=== PATIENT | female | born 1950 | race American Indian/Alaskan Native ===

== ENCOUNTER 2018-04-24 06:32 | Day surgery (SDC) | payer MEDICARE ==
[2018-04-24] MEDS ORDERED: NACL 0.9% 1000 ML 1,000 ML IV SCH (07:00)
[2018-04-24] MEDS ORDERED: WATER FOR IRRIG STERILE IR ONE ×2 (07:32→07:33)
--- NOTE | 2018-04-24 07:45 | Anesthesia Day of Surgery ---
Anesthesia Day of Surgery - Day of Surgery Patient Examined: Yes Patient H&P Reviewed: Yes Patient is NPO: Yes
--- NOTE | 2018-04-24 07:45 | Anesthesia Consultation ---
Anesthesia Consult and Med Hx Date of service: 04/24/18 - Airway Anesthetic Teeth Evaluation: Good ROM Head & Neck: Adequate Mental/Hyoid Distance: Adequate Mallampati Class: Class II Intubation Access Assessment: Probably Good - Pre-Operative Health Status ASA Pre-Surgery Classification: ASA3 Proposed Anesthetic Plan: MAC - Cardiovascular System Hx Hypertension: Yes - Endocrine Hx Renal Disease: Yes Hx End Stage Renal Disease: Yes (peritoneal dilalysis)
[2018-04-24] MEDS ORDERED: DIPRIVAN 10 MG/ML IV ONE ×2 (07:49)
[2018-04-24] MEDS ORDERED: XYLOCAINE 2% INFILTRATI ONE (07:49)
--- NOTE | 2018-04-24 08:14 | Operative Report ---
Operative Report Operative Report: SURGEON: Octavio Manzo MD EGD with biopsy REPORT PREOPERATIVE DIAGNOSIS and POSTOPERATIVE DIAGNOSIS: Abdominal pain, weight loss ESTIMATED BLOOD LOSS: minimal DESCRIPTION OF PROCEDURE: A high-resolution EGD scope was passed through the oropharynx, esophagus, stomach, and second portion of duodenum. The scope was carefully withdrawn. Retroflexion was performed in the stomach. At the end of the procedure, the scope was cleaned using normal technique. Vital signs monitored continuously throughout. SEDATION: Provided by Anesthesiology Services. COMPLICATIONS: None. FINDINGS: * No gross lesions in the duodenum. Biopsies were taken to rule out celiac disease. A total of 6 biopsies were taken, the first from the duodenal bulb, with each subsequent biopsies progressively distal with the last biopsy as distal as could be reached with the endoscope. * Stomach with moderate gastritis with small amount of adherent heme, and 2 small ulcers one in the proximal body and one in the antrum. Biopsies were taken to rule out H. Pylori infection. A total of 6 biopsies were taken, 2 from the antrum, 1 from the incisura, 2 from the body. 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 * Possible extrinsic compression of the esophagus in the lower third of the esophagus * Remainder of the exam was normal RECOMMENDATIONS: * Start PPI * CT Chest * F/u Path
[2018-04-24 09:00] VITALS: BP 151/88
--- NOTE | 2018-04-24 09:56 | Post Anesthesia Evaluation ---
- Post Anesthesia Evaluation Patient Participated: Yes Airway Patent: Yes Stable Respiratory Function: Yes Nausea/Vomiting: No Temp > 96.8F: Yes Pain Manageable: Yes Adequeate Hydration: Yes Anesthesia Complications: No Block Receding Appropriately: Not Applicable Patient on Ventilator: No
== END 2018-04-24 06:33 | disposition home or self-care (01) ==
LOC: GIO 06:32
PROVIDERS: ATTEND Student in an Organized Health Care Education/Training Program
DX: K29.40 Chronic atrophic gastritis without bleeding (principal); K21.0 Gastro-esophageal reflux disease with esophagitis; K44.9 Diaphragmatic hernia without obstruction or gangrene; H40.9 Unspecified glaucoma; I12.0 Hypertensive chronic kidney disease with stage 5 chronic kidney disease or end stage renal disease; N18.6 End stage renal disease; E78.00 Pure hypercholesterolemia, unspecified; Z99.2 Dependence on renal dialysis; Z98.890 Other specified postprocedural states; Z79.899 Other long term (current) drug therapy; Z90.710 Acquired absence of both cervix and uterus
CPT/HCPCS: 43239; 88305; 88342; J2704; J7030

== ENCOUNTER 2018-05-04 09:56 | Outpatient (CLI) | payer MEDICARE ==
--- NOTE | 2018-05-04 11:08 | Cat Scan Report ---
CT CHEST WITHOUT CONTRAST: HISTORY: Nausea. COMPARISON: none. TECHNIQUE: Helical CT in 1.25mm intervals without IV contrast. Sagittal and coronal reformatted images. FINDINGS: Thyroid gland: Normal. Tracheobronchial tree: Normal. Esophagus: Normal. Heart: Normal. Pericardium: Normal. Mediastinum: The aorta is mildly ectatic with scattered calcifications. No mediastinal mass or adenopathy. Lung Leal: Normal. Pleural Spaces: Normal. Musculoskeletal: Intact. Mild thoracic spondylosis. Limited images of the upper abdomen demonstrate demonstrate multiple small liver cysts. One cyst at the superior pole of the left kidney demonstrates hemorrhagic change. The kidneys appear mildly atrophic. IMPRESSION: No acute cardiopulmonary process. Ectatic aorta. Mild renal atrophy and bilateral renal cysts are partially imaged.
== END 2018-05-04 09:57 | disposition home or self-care (01) ==
LOC: CT 09:56
PROVIDERS: ATTEND Student in an Organized Health Care Education/Training Program
DX: I77.810 Thoracic aortic ectasia (principal); M47.814 Spondylosis without myelopathy or radiculopathy, thoracic region; N28.1 Cyst of kidney, acquired; I12.0 Hypertensive chronic kidney disease with stage 5 chronic kidney disease or end stage renal disease; E78.00 Pure hypercholesterolemia, unspecified; N18.6 End stage renal disease; Z90.710 Acquired absence of both cervix and uterus
CPT/HCPCS: 71250

== ENCOUNTER 2018-05-24 07:00 | Day surgery (SDC) | payer MEDICARE ==
[~2018-05-24 07:00] MED LIST: TETRACAINE 0.5% OS NR
[2018-05-24] MEDS: VIGAMOX OS SCH ×3 (08:15→08:25)
[2018-05-24] MEDS: MYDRIACYL OS SCH ×3 (08:15→08:25)
[2018-05-24] MEDS: AK-Dilate OS SCH ×3 (08:15→08:25)
--- NOTE | 2018-05-24 08:37 | Anesthesia Consultation ---
Anesthesia Consult and Med Hx Date of service: 05/24/18 - Airway Anesthetic Teeth Evaluation: Good ROM Head & Neck: Adequate Mental/Hyoid Distance: Adequate Mallampati Class: Class III Intubation Access Assessment: Possibly Difficult - Pulmonary Exam CTA: Yes - Cardiac Exam Cardiac Exam: RRR - Pre-Operative Health Status ASA Pre-Surgery Classification: ASA4 Proposed Anesthetic Plan: MAC - Pulmonary Hx Smoking: No Hx Asthma: No Hx Respiratory Symptoms: No - Cardiovascular System Hx Hypertension: Yes (no antihypertensives in recent days per telecommunications line installer orders) Hx Heart Attack/AMI: No Hx Percutaneous Transluminal Coronary Angioplasty (PTCA): No Hx Cardia Arrhythmia: No - Central Nervous System CVA: No - Gastrointestinal Hx Ulcer: Yes (took antirefluc medications this morning) - Endocrine Hx End Stage Renal Disease: Yes (peritoneal dilalysis qHS) Hx Liver Disease: No Hx Insulin Dependent Diabetes: No Hx Non-Insulin Dependent Diabetes: No Hx Thyroid Disease: No - Hematic Hx Anemia: Yes - Other Systems Hx Obesity: No - Additional Comments Anesthesia Medical History Comments: No hx anesthetic complications.
--- NOTE | 2018-05-24 08:37 | Anesthesia Day of Surgery ---
Anesthesia Day of Surgery - Day of Surgery Patient Examined: Yes Patient H&P Reviewed: Yes Patient is NPO: Yes
[2018-05-24] MEDS ORDERED: VERSED ONE (08:51)
[2018-05-24] MEDS ORDERED: SUBLIMAZE ONE (08:51)
--- NOTE | 2018-05-24 09:40 | Operative Report ---
Operative Report Operative Report: PATIENT'S NAME: DATE OF : DATE OF SURGERY: 05/24/2018 PREOPERATIVE DIAGNOSIS: Cataract left eye POSTOPERATIVE DIAGNOSIS: Same OPERATIVE PROCEDURE: Phacoemulsification with intraocular lens implantation, left eye SURGEON: Katy Mcmahan M.D. CLINICAL RESOURCE COORDINATOR SURGEON: Alberto Lens: [id number] 12.5 D ANESTHESIA: Monitored anesthesia care in combination with topical and intracameral anesthesia because of the established specific risk of reflux, arrhythmias, or anxiety attacks associated with ocular manipulation, as well as the difficulty of the drapery examiner to manage such potentially catastrophic events while simultaneously attempting to complete the surgical procedure and was deemed necessary for the patient's safety to have an Gas Distribution And Emergency Clerk present during the procedure whenever possible. An Gas Distribution And Emergency Clerk was utilized to regulate the intravenous sedation of the patient so the patient was cooperative yet not asleep in order for the patient to successfully maintain fixation of the eye on the operating light of the microscope. COMPLICATIONS: [No surgical complications] No blood loss. ALLERGIES: [No known drug allergies] PROGNOSIS: Excellent INDICATIONS FOR SURGERY: The patient is undergoing surgery in the hopes of eliminating or improving these visual difficulties. PROCEDURE: After arriving at the surgery center, the patient was given topical anesthetic and dilating drops, as noted in the record. The patient was then taken into the operating room and given more anesthetic drops. The eyelids, lashes, and lid margins were scrubbed with Betadine solution, and the patient was draped. The Nurse Gas Distribution And Emergency Clerk administered IV sedation and monitored the patient during the procedure. The eye was then fixated with a 0.12, and a stab incision was made in the peripheral clear cornea into the anterior chamber. This was made on my left side. Viscoelastic was next used to fill the anterior chamber. The eye was once again fixated with the 0.12 forceps and a keratome was used make an incision in clear cornea peripherally on my right hand side temporally. The capsule forceps were used to open the central anterior capsule and then make a continuous round capsulotomy. Hydrodissection was carried out utilizing a cannula and balanced salt solution to delineate the cortical material from the capsule and the nucleus from the cortical material. The phaco tip was introduced into the eye and used to remove the anterior cortical material in the area of the capsulotomy. Then the phaco tip was buried into the nucleus, and a chopping instrument was introduced into the eye and used to provide countertraction in the nucleus between this instrument and the phaco tip fracturing the nucleus. This procedure was repeated multiple times, providing multiple small segments of the lens, and then the phaco tip was used to remove each of these segments. An I/A tip was then used to remove the remaining cortex. The anterior chamber was refilled with viscoelastic. An one-piece, acrylic intraocular lens was then placed into an inserting cartridge. The tip of the inserting cartridge was introduced into the keratome incision and into the anterior chamber. The implant was gently advanced through the cartridge and into the eye, where it unfolded, and both haptics were placed in the capsular bag, where it centered nicely and appeared to be well fixated. After placement of the intraocular lens, the I~and~A handpiece was placed back into the eye and used to remove the viscoelastic, including viscoelastic that was behind the optic of the intraocular lens. The anterior chamber was then filled with balanced salt solution, and hydration of the wound was used to cause swelling of the wound and more appropriate watertight closure. When the wound was found to be firm, the patient was asked to comment on how bright the light was. If there was no light perception at all or if the light was substantially dimmer than during the rest of the surgery, the amount of fluid in the eye was decompressed to lower the intraocular pressure until the patient could see the bright light again. This was done to avoid any damage or decreased blood flow to the optic nerve. MEDICATIONS APPLIED AT END OF SURGERY: One drop of Pred Forte and Vigamox The patient was given a shield to wear at night and was instructed not to rub or push on the eye. DISCHARGE SUMMARY: The patient was released in stable condition. The patient and those with the patient were given a written sheet of postoperative instructions and counseling on any abnormal laboratory studies. The patient is to see us tomorrow for follow-up in the office and is to call immediately for any difficulties. Katy Mcmahan M.D. Date
--- NOTE | 2018-05-24 09:41 | Short Stay Summary ---
Short Stay Documentation Date of service: 05/24/18 - History H&P: obtained from office - Allergies and Medications Current Medications: Allergies No Known Allergies Allergy (Verified 05/23/18 12:49) Home Medications Medication Instructions Recorded Confirmed Last Taken Type AtorvaSTATin [Lipitor] 10 mg PO QHS 05/23/18 05/24/18 05/23/18 21:00 History B Complex 11/Folic/C/Biot/Zinc 1 each PO DAILY 05/23/18 05/24/18 05/23/18 21:00 History [Dialyvite with Zinc Tablet] Calcitriol [Rocaltrol] 0.5 mcg PO QDAY 05/23/18 05/24/18 05/23/18 09:00 History Cholecalciferol Vit D3 [Vitamin D3 1,000 unit PO QDAY 05/23/18 05/24/18 05/23/18 09:00 History 1,000 UNIT TAB] Cinacalcet [Sensipar] 30 mg PO QDAY 05/23/18 05/24/18 05/16/18 09:00 History Lanthanum Carbonate [Fosrenol] 1,000 mg PO TIDAC 05/23/18 05/24/18 05/23/18 21:00 History Levobunolol 0.5%(Nf) [Betagan (Nf)] 1 drop OP BID 05/23/18 05/24/18 05/23/18 21:00 History Pantoprazole Sodium 20 mg PO DAILY 05/23/18 05/24/18 05/23/18 09:00 History Active Medications Acetazolamide (Diamox) 500 mg PO ONCE ONE Stop: 05/24/18 09:41 Moxifloxacin HCl (Vigamox) 1 drops OS Q5MIN [facility] Stop: 05/26/18 23:59 Last Admin: 05/24/18 08:25 Dose: 1 drops Documented by: Phenylephrine HCl (Ak-Dilate) 1 drops OS Q5MIN [facility] Stop: 05/24/18 23:59 Last Admin: 05/24/18 08:25 Dose: 1 drops Documented by: Prednisolone Acetate (Pred Forte 1%) 1 drops OD QID [facility] Tetracaine HCl (Tetracaine 0.5%) 1 drops OS ONCE NR Stop: 05/24/18 23:59 Last Admin: 05/24/18 08:15 Dose: 1 drops Documented by: Tropicamide (Mydriacyl) 1 drops OS Q5MIN [facility] Stop: 05/24/18 23:59 Last Admin: 05/24/18 08:25 Dose: 1 drops Documented by: - Brief post op/procedure progress note Date of procedure: 05/24/18 Pre-op diagnosis: left cataract Post-op diagnosis: same Procedure: Phacoemulsification with intraocular lens insertion left eye Anesthesia: MAC, local Surgeon: PHOEBE PEREZ Estimated blood loss: none Pathology: none Condition: stable - Disposition Condition at discharge: Good Disposition: DC-01 TO HOME OR SELFCARE - Discharge Diagnoses (1) Cortical age-related cataract of left eye Status: Resolved Short Stay Discharge Plan Follow up with: BHASKAR HUNTER JR, MD [Primary Care Provider] - 7 Days
[2018-05-24 09:57] VITALS: BP 162/92
[2018-05-24] MEDS ORDERED: PRED FORTE 1% OD SCH (10:00)
[2018-05-24] MEDS ORDERED: DIAMOX PO ONE (10:00)
--- NOTE | 2018-05-24 11:54 | Post Anesthesia Evaluation ---
- Post Anesthesia Evaluation Patient Participated: Yes Airway Patent: Yes Stable Respiratory Function: Yes Nausea/Vomiting: No Temp > 96.8F: Yes Pain Manageable: Yes Adequeate Hydration: Yes Anesthesia Complications: No
== END 2018-05-24 10:20 | disposition home or self-care (01) ==
LOC: OR 07:00
DX: H25.012 Cortical age-related cataract, left eye (principal); I12.0 Hypertensive chronic kidney disease with stage 5 chronic kidney disease or end stage renal disease; N18.6 End stage renal disease; H40.9 Unspecified glaucoma; E78.00 Pure hypercholesterolemia, unspecified; M19.90 Unspecified osteoarthritis, unspecified site; Z99.2 Dependence on renal dialysis; Z79.899 Other long term (current) drug therapy; Z90.710 Acquired absence of both cervix and uterus; Z87.891 Personal history of nicotine dependence; Z98.890 Other specified postprocedural states; Z86.2 Personal history of diseases of the blood and blood-forming organs and certain disorders involving the immune mechanism
CPT/HCPCS: 66984; J2250; J3010; V2632

== ENCOUNTER 2018-09-06 09:08 | Day surgery (SDC) | payer MEDICARE ==
[~2018-09-06 09:08] MED LIST changes: +TETRACAINE 0.5% OD SCH; -TETRACAINE 0.5% OS NR
[2018-09-06] MEDS: AK-Dilate OD SCH ×3 (09:30→09:40)
[2018-09-06] MEDS: VIGAMOX OD SCH ×3 (09:30→09:40)
[2018-09-06] MEDS: MYDRIACYL OD SCH ×3 (09:30→09:40)
--- NOTE | 2018-09-06 09:40 | Anesthesia Day of Surgery ---
Anesthesia Day of Surgery - Day of Surgery Patient Examined: Yes Patient H&P Reviewed: Yes Patient is NPO: Yes
--- NOTE | 2018-09-06 09:43 | Anesthesia Consultation ---
Anesthesia Consult and Med Hx Date of service: 09/06/18 - Airway Anesthetic Teeth Evaluation: Good ROM Head & Neck: Adequate Mental/Hyoid Distance: Adequate Mallampati Class: Class II Intubation Access Assessment: Good - Pre-Operative Health Status ASA Pre-Surgery Classification: ASA3 Proposed Anesthetic Plan: MAC - Pulmonary Hx Smoking: No Hx Asthma: No Hx Respiratory Symptoms: No - Cardiovascular System Hx Hypertension: Yes (no antihypertensives in recent days per product controller orders) Hx Heart Attack/AMI: No Hx Percutaneous Transluminal Coronary Angioplasty (PTCA): No Hx Cardia Arrhythmia: No - Central Nervous System CVA: No Hx Psychiatric Problems: No - Gastrointestinal Hx Ulcer: Yes (took antirefluc medications this morning) Hx Gastroesophageal Reflux Disease: No - Endocrine Hx Renal Disease: Yes Hx End Stage Renal Disease: Yes (peritoneal dilalysis qHS) Hx Liver Disease: No Hx Insulin Dependent Diabetes: No Hx Non-Insulin Dependent Diabetes: No Hx Thyroid Disease: No - Hematic Hx Anemia: Yes - Other Systems Hx Alcohol Use: No Hx Substance Use: No Hx Obesity: No
[2018-09-06] MEDS ORDERED: SUBLIMAZE ONE (09:51)
[2018-09-06] MEDS ORDERED: VERSED ONE (09:51)
[2018-09-06] MEDS ORDERED: PRED FORTE 1% OD NR (10:51)
--- NOTE | 2018-09-06 10:55 | Operative Report ---
Operative Report Operative Report: PATIENT'S NAME: DATE OF : DATE OF SURGERY: 09/06/2018 PREOPERATIVE DIAGNOSIS: Cataract right eye POSTOPERATIVE DIAGNOSIS: Same OPERATIVE PROCEDURE: Phacoemulsification with intraocular lens implantation, right eye SURGEON: Katy Mcmahan M.D. COMBINATION TECHNICIAN SURGEON: Alberto Lens: [id number] 14.5 D ANESTHESIA: Monitored anesthesia care in combination with topical and intracameral anesthesia because of the established specific risk of reflux, arrhythmias, or anxiety attacks associated with ocular manipulation, as well as the difficulty of the coal conveyor operator to manage such potentially catastrophic events while simultaneously attempting to complete the surgical procedure and was deemed necessary for the patient's safety to have an Traveling Phlebotomist present during the procedure whenever possible. An Traveling Phlebotomist was utilized to regulate the intravenous sedation of the patient so the patient was cooperative yet not asleep in order for the patient to successfully maintain fixation of the eye on the operating light of the microscope. COMPLICATIONS: [No surgical complications] No blood loss. ALLERGIES: [No known drug allergies] PROGNOSIS: Excellent INDICATIONS FOR SURGERY: The patient is undergoing surgery in the hopes of eliminating or improving these visual difficulties. PROCEDURE: After arriving at the surgery center, the patient was given topical anesthetic and dilating drops, as noted in the record. The patient was then taken into the operating room and given more anesthetic drops. The eyelids, lashes, and lid margins were scrubbed with Betadine solution, and the patient was draped. The Nurse Traveling Phlebotomist administered IV sedation and monitored the patient during the procedure. The eye was then fixated with a 0.12, and a stab incision was made in the peripheral clear cornea into the anterior chamber. This was made on my left side. Viscoelastic was next used to fill the anterior chamber. The eye was once again fixated with the 0.12 forceps and a keratome was used make an incision in clear cornea peripherally on my right hand side temporally. The capsule forceps were used to open the central anterior capsule and then make a continuous round capsulotomy. Hydrodissection was carried out utilizing a cannula and balanced salt solution to delineate the cortical material from the capsule and the nucleus from the cortical material. The phaco tip was introduced into the eye and used to remove the anterior cortical material in the area of the capsulotomy. Then the phaco tip was buried into the nucleus, and a chopping instrument was introduced into the eye and used to provide countertraction in the nucleus between this instrument and the phaco tip fracturing the nucleus. This procedure was repeated multiple times, providing multiple small segments of the lens, and then the phaco tip was used to remove each of these segments. An I/A tip was then used to remove the remaining cortex. The anterior chamber was refilled with viscoelastic. An one-piece, acrylic intraocular lens was then placed into an inserting cartridge. The tip of the inserting cartridge was introduced into the keratome incision and into the anterior chamber. The implant was gently advanced through the cartridge and into the eye, where it unfolded, and both haptics were placed in the capsular bag, where it centered nicely and appeared to be well fixated. After placement of the intraocular lens, the I~and~A handpiece was placed back into the eye and used to remove the viscoelastic, including viscoelastic that was behind the optic of the intraocular lens. The anterior chamber was then filled with balanced salt solution, and hydration of the wound was used to cause swelling of the wound. Because the patient has throat degeneration or cornea risk-free was found to be very thin and I wasn't able to close the wound just with hydration . Elected to place 10-0 nylon suture domain as well as secondary incision. This was followed by placement of ReSure sealant. MEDICATIONS APPLIED AT END OF SURGERY: One drop of Pred Forte and Vigamox The patient was given a shield to wear at night and was instructed not to rub or push on the eye. DISCHARGE SUMMARY: The patient was released in stable condition. The patient and those with the patient were given a written sheet of postoperative instructions and counseling on any abnormal laboratory studies. The patient is to see us tomorrow for follow-up in the office and is to call immediately for any difficulties. Katy Mcmahan M.D. Date
--- NOTE | 2018-09-06 10:57 | Short Stay Summary ---
Short Stay Documentation Date of service: 09/06/18 - History H&P: obtained from office - Allergies and Medications Current Medications: Allergies No Known Allergies Allergy (Verified 05/23/18 12:49) Home Medications Medication Instructions Recorded Confirmed Last Taken Type B Complex 11/Folic/C/Biot/Zinc 1 each PO DAILY 05/23/18 08/27/18 09/05/18 History [Dialyvite with Zinc Tablet] Calcitriol [Rocaltrol] 0.5 mcg PO QDAY 05/23/18 08/27/18 09/05/18 History Cholecalciferol Vit D3 [Vitamin D3 1,000 unit PO QDAY 05/23/18 08/27/18 09/05/18 History 1,000 UNIT TAB] Cinacalcet [Sensipar] 30 mg PO QDAY 05/23/18 08/27/18 09/05/18 History Levobunolol 0.5%(Nf) [Betagan (Nf)] 1 drop OP BID 05/23/18 08/27/18 09/05/18 History Pantoprazole Sodium 20 mg PO DAILY 05/23/18 08/27/18 09/05/18 History Active Medications Moxifloxacin HCl (Vigamox) 1 drops OD Q5MIN [facility] Stop: 09/06/18 16:00 Last Admin: 09/06/18 09:40 Dose: 1 drops Documented by: Phenylephrine HCl (Ak-Dilate) 1 drops OD Q5MIN [facility] Stop: 09/08/18 16:00 Last Admin: 09/06/18 09:40 Dose: 1 drops Documented by: Tetracaine HCl (Tetracaine 0.5%) 1 drops OD ONCE [facility] Stop: 09/06/18 16:00 Last Admin: 09/06/18 09:30 Dose: 1 drops Documented by: Tropicamide (Mydriacyl) 1 drops OD Q5MIN [facility] Stop: 09/08/18 16:00 Last Admin: 09/06/18 09:40 Dose: 1 drops Documented by: - Brief post op/procedure progress note Date of procedure: 09/06/18 Pre-op diagnosis: right cataract Post-op diagnosis: same Procedure: Phacoemulsification with intraocular lens insertion right eye Anesthesia: MAC, local Surgeon: PHOEBE PEREZ Estimated blood loss: none Pathology: none Condition: stable - Disposition Condition at discharge: Good Disposition: DC-01 TO HOME OR SELFCARE - Discharge Diagnoses (1) Cortical age-related cataract of right eye Status: Resolved Short Stay Discharge Plan Follow up with: BHASKAR HUNTER JR, MD [Primary Care Provider] - 7 Days
[2018-09-06] MEDS ORDERED: DIAMOX PO NR (11:02)
[2018-09-06 13:55] VITALS: BP 140/84
[2018-09-06] MEDS ORDERED: PRED FORTE 1% ONE (15:19)
== END 2018-09-06 11:40 | disposition home or self-care (01) ==
LOC: OR 09:08
DX: H25.011 Cortical age-related cataract, right eye (principal); I12.0 Hypertensive chronic kidney disease with stage 5 chronic kidney disease or end stage renal disease; N18.6 End stage renal disease; H40.9 Unspecified glaucoma; E78.00 Pure hypercholesterolemia, unspecified; M19.90 Unspecified osteoarthritis, unspecified site; Z99.2 Dependence on renal dialysis; Z79.899 Other long term (current) drug therapy; Z90.710 Acquired absence of both cervix and uterus; Z98.890 Other specified postprocedural states
CPT/HCPCS: 66984; J2250; J3010; V2632

== ENCOUNTER 2018-09-11 10:45 | Outpatient (CLI) | payer MEDICARE ==
--- NOTE | 2018-09-17 13:37 | Mammography Report ---
DEXA BONE DENSITY SCAN INDICATION: ASYMPTOMATIC POSTMENOPAUSAL STATUS. COMPARISON: None available. LEFT FOREARM: Bone mineral density (BMD) is 0.408 g/cm2. T-score is -3.1 (standard deviations of Young Adult mean). Z-score is -1.0 (standard deviations of Age Matched mean). LEFT FEMORAL NECK: Bone mineral density (BMD) is 0.638 g/cm2. T-score is -2.5 (standard deviations of Young Adult mean). Z-score is -1.4 (standard deviations of Age Matched mean). IMPRESSION: 1. WHO Classification: Osteoporosis. Fracture Risk: High. Signer Name: Burton Hong MD Signed: 09/11/2018 2:38 PM Workstation Name: [id number]
== END 2018-09-11 10:46 | disposition home or self-care (01) ==
LOC: MAMMO 10:45
PROVIDERS: ATTEND Internal Medicine
DX: M85.80 Other specified disorders of bone density and structure, unspecified site (principal); I12.0 Hypertensive chronic kidney disease with stage 5 chronic kidney disease or end stage renal disease; N18.6 End stage renal disease; E78.00 Pure hypercholesterolemia, unspecified; Z78.0 Asymptomatic menopausal state; Z90.710 Acquired absence of both cervix and uterus
CPT/HCPCS: 77080